=== PATIENT | male | born 1980 | race African-American/Black ===

== ENCOUNTER 2017-12-05 02:06 | Emergency (ER) | payer OTHER ==
--- NOTE | 2017-12-05 02:16 | ED ---
General Adult HPI - General Chief complaint: Recheck/Abnormal Lab/Rx Stated complaint: STD check Time Seen by Provider: 12/05/17 02:14 Source: patient Mode of arrival: ambulatory Limitations: no limitations - History of Present Illness Initial comments: Oscar is a 37-year-old male who presents the emergency department today for evaluation of possible exposure to sexual transmitted infection. Patient reports that he received a text message today from a partner he has been intermittent with that alerted him that she had tested positive for chlamydia. Patient reports he's not having any symptoms but wanted to be tested and treated. - Related Data Home Medications Medication Instructions Recorded Confirmed No Known Home Medications 12/05/17 12/05/17 Allergies Allergy/AdvReac Type Severity Reaction Status Date / Time banana Allergy Unknown Verified 12/05/17 02:13 Childhood latex Allergy Rash/Hives Verified 12/05/17 02:13 Review of Systems ROS Statement: Those systems with pertinent positive or pertinent negative responses have been documented in the HPI. ROS Other: All systems not noted in ROS Statement are negative. Past Medical History Past Medical History: No Reported History History of Any Multi-Drug Resistant Organisms: None Reported Additional Past Surgical History / Comment(s): left wrist Past Psychological History: No Psychological Hx Reported Smoking Status: Current every day smoker Past Alcohol Use History: Occasional Past Drug Use History: Marijuana General Exam Limitations: no limitations General appearance: alert, in no apparent distress Head exam: Present: atraumatic, normocephalic Eye exam: Present: normal appearance ENT exam: Present: normal exam Neck exam: Present: normal inspection Respiratory exam: Absent: respiratory distress Cardiovascular Exam: Present: regular rate Rectal exam: Present: deferred Neurological exam: Present: alert, oriented X3 Psychiatric exam: Present: anxious Skin exam: Present: warm, dry Course Vital Signs 12/05/17 02:10 Temperature 98.5 F Pulse Rate 97 Respiratory 18 Rate Blood Pressure 140/92 O2 Sat by Pulse 98 Oximetry Medical Decision Making - Medical Decision Making The patient was seen and evaluated, history was obtained from the patient Gonorrhea and chlamydia PCR were ordered Empiric treatment for GC and Chlamydia were ordered She was advised that if his results are positive he will be notified otherwise he will not be notified. I advised the patient that if he is curious he can call in 3 days for results. Patient's breast understanding of this. I advised patient not be sexually active until 70s after treatment. An any other partners he has been intimate with since being intimate with his partner who tested positive also need to be tested and treated. - Lab Data Lab Results 12/05/17 Range/Units 02:17 Urine Color Yellow Urine Appearance Clear (Clear) Urine pH 5.5 (5.0-8.0) Ur Specific [place] 1.023 (1.001-1.035) Urine Protein Trace H (Negative) Urine Glucose (UA) Negative (Negative) Urine Ketones Negative (Negative) Urine Blood Moderate H (Negative) Urine Nitrite Negative (Negative) Urine Bilirubin Negative (Negative) Urine Urobilinogen 4.0 (<2.0) mg/dL Ur Leukocyte Esterase Negative (Negative) Urine RBC 5 (0-5) /hpf Urine WBC 1 (0-5) /hpf Ur Squamous Epith Cells <1 (0-4) /hpf Urine Mucus Occasional H (None) /hpf Disposition Clinical Impression: Exposure to sexually transmitted disease (STD) Disposition: HOME SELF-CARE Condition: Good Instructions: Safe Sex (ED) Is patient prescribed a controlled substance at d/c from ED?: No Referrals: None,Stated [Primary Care Provider] - 1-2 days Time of Disposition: 03:28
[2017-12-05 02:34] LABS: Appearance,Urine Clear (Clear); Bilirubin,Urine Negative (Negative); Blood,Urine Moderate (Negative); Color,Urine Yellow; Glucose,Urine (UA) Negative (Negative); Ketones,Urine Negative (Negative); Leukocyte Esterase,Urine Negative (Negative); Mucus,Urine Occasional /hpf; Nitrite,Urine Negative (Negative); PH, Urine 5.5 (5.0-8.0); Protein,Urine Trace (Negative); RBC,Urine 5 /hpf (0-5); Specific Gravity,Urine 1.023 (1.001-1.035); Squamous Epithelial Cell,Urine <1 /hpf (0-4); WBC,Urine 1 /hpf (0-5)
[2017-12-05] MEDS ORDERED: cefTRIAXone 250 MG VIAL IM STA (03:13)
[2017-12-05] MEDS ORDERED: AZITHROMYCIN 500 MG TAB PO STA (03:13)
[2017-12-05 03:47] VITALS: BP 129/77; PULSE 76; RESP 16; TEMP 98
== END 2017-12-05 03:47 | disposition home or self-care (01) ==
LOC: EC 02:06
DX: Z20.2 Contact with and (suspected) exposure to infections with a predominantly sexual mode of transmission (principal); F17.200 Nicotine dependence, unspecified, uncomplicated; Z91.018 Allergy to other foods; Z91.040 Latex allergy status
CPT/HCPCS: 81001; 87491; 87591; 99283; 96372; J0696